=== PATIENT | female | born 1945 | race Caucasian/White ===

== ENCOUNTER → 2019-05-25 | Outpatient (CLI) | payer OTHER | LOC: NUC 10:48 | DX: M85.89 Other specified disorders of bone density and structure, multiple sites (principal); M81.0 Age-related osteoporosis without current pathological fracture ==

== ENCOUNTER 2019-11-02 15:14 | Inpatient (IN) | payer OTHER ==
[~2019-11-02] VITALS: Ht 160 cm; Wt 89.4 kg
[2019-11-02 15:21] VITALS: BP 141/63
[2019-11-02 16:12] LABS: HEMOGLOBIN 6.8 gm/dL (12.0-15.0); MCH 25.5 pg (26.0-34.0); MCHC 32.2 g/dL (28.0-37.0); MCV 79.3 fL (80.0-100.0); PLATELET COUNT 216 thou/uL (150-400); RBC 2.65 mil/uL (4.20-5.00); RDW 18.4 % (10.5-14.5); WBC 6.7 thou/uL (4.0-11.0)
[2019-11-02 16:14] LABS: CALCIUM 8.6 mg/dL (8.5-10.1); CREATININE 1.3 mg/dL (0.6-1.0); POTASSIUM 4.3 mmol/L (3.5-5.1)
[2019-11-02 16:21] LABS: ALBUMIN 3.1 g/dL (3.4-5.0); TOTAL BILIRUBIN 0.2 mg/dL (0.2-1.0); TOTAL PROTEIN 7.1 g/dL (6.4-8.2)
[2019-11-02 16:31] LABS: ABSOLUTE NEUTROPHILS 4.9 thou/uL (1.4-8.2); ANISOCYTOSIS 1+; HYPOCHROMASIA 2+; PLATELET ESTIMATE NORMAL
[2019-11-02 17:21] VITALS: BP 143/61
[2019-11-02] MEDS ORDERED: MELOXICAM15 MG PO (17:36)
[2019-11-02] MEDS ORDERED: SERTRALINE HCL100 MG PO (17:36)
[2019-11-02] MEDS ORDERED: HYDRALAZINE 2525 M1 PO (17:37)
[2019-11-02] MEDS ORDERED: LISINOPRIL40 MG PO (17:37)
[2019-11-02] MEDS ORDERED: FLEXERIL PO (17:37)
[2019-11-02] MEDS ORDERED: ROPINIROLE HCL2 MG PO (17:37)
[2019-11-02] MEDS ORDERED: OMEPRAZOLE40 MG PO (17:38)
[2019-11-02] MEDS ORDERED: MECLIZINE HCL25 M1 PO (17:38)
[2019-11-02] MEDS ORDERED: LIPITOR10 MG PO (17:38)
[2019-11-02] MEDS ORDERED: INDERAL LA120 M1 PO (17:39)
[2019-11-02] MEDS ORDERED: BUPROPION XL300 MG PO (17:39)
[2019-11-02 17:45] VITALS: BP 141/64
[2019-11-02 22:21] VITALS: BP 144/69; BP 147/64; BP 150/79; BP 155/70; BP 159/85
[2019-11-03] VITALS (10 sets, daily range): BP systolic 144–194; BP diastolic 68–99
[2019-11-03 03:20] LABS: HEMATOCRIT 24.2 % (37.0-47.0); HEMOGLOBIN 7.2 gm/dL (12.0-15.0)
[2019-11-03 09:46] LABS: % SATURATION 9 % (20-39); IRON 35 ug/dL (50-170); TIBC 373 ug/dL (250-450)
[2019-11-03 10:53] LABS: HEMOGLOBIN 7.1 gm/dL (12.0-15.0)
[2019-11-03 14:55] LABS: BE(vivo) -3.5 mmol/L (-2 to +3); HCO3 20.1 mmol/L (22.0-26.0); PCO2 30.2 mmHg (35.0-45.0); pH 7.442 (7.360-7.450); sO2 93.8 % (92.0-98.0)
[2019-11-03 23:08] LABS: HEMATOCRIT 27.6 % (37.0-47.0); HEMOGLOBIN 8.6 gm/dL (12.0-15.0)
[2019-11-04 02:30] VITALS: BP 114/49; BP 117/49
[2019-11-04 05:29] LABS: HEMATOCRIT 27.5 % (37.0-47.0); HEMOGLOBIN 8.6 gm/dL (12.0-15.0); MCH 25.4 pg (26.0-34.0); MCHC 31.2 g/dL (28.0-37.0); MCV 81.3 fL (80.0-100.0); RBC 3.38 mil/uL (4.20-5.00); RDW 17.3 % (10.5-14.5); WBC 6.6 thou/uL (4.0-11.0)
[2019-11-04 05:43] LABS: CALCIUM 9.4 mg/dL (8.5-10.1); CREATININE 1.3 mg/dL (0.6-1.0); MAGNESIUM 1.8 mg/dL (1.8-2.4); POTASSIUM 4.1 mmol/L (3.5-5.1)
[2019-11-04 08:35] VITALS: BP 145/81
[2019-11-04 11:45] VITALS: BP 120/94
[2019-11-04 15:35] VITALS: BP 151/80
[2019-11-04 20:00] VITALS: BP 154/87
[2019-11-05 05:00] VITALS: BP 138/60
[2019-11-05 05:56] LABS: HEMATOCRIT 28.4 % (37.0-47.0); HEMOGLOBIN 8.8 gm/dL (12.0-15.0); MCH 25.4 pg (26.0-34.0); MCHC 30.9 g/dL (28.0-37.0); RBC 3.47 mil/uL (4.20-5.00); RDW 17.8 % (10.5-14.5); WBC 6.6 thou/uL (4.0-11.0)
[2019-11-05 06:09] LABS: APTT 33.4 Seconds (24.5-32.8); PROTIME 10.5 Seconds (9.3-11.4)
[2019-11-05 07:48] VITALS: BP 157/76
[2019-11-05 11:20] VITALS: BP 158/74
[2019-11-05 15:27] VITALS: BP 124/42
[2019-11-05 20:53] VITALS: BP 148/78
[2019-11-06 03:23] VITALS: BP 137/65
[2019-11-06 06:06] LABS: HEMATOCRIT 29.5 % (37.0-47.0); HEMOGLOBIN 9.3 gm/dL (12.0-15.0); MCHC 31.5 g/dL (28.0-37.0); MCV 82.7 fL (80.0-100.0); RBC 3.57 mil/uL (4.20-5.00); RDW 17.8 % (10.5-14.5); WBC 7.3 thou/uL (4.0-11.0)
[2019-11-06 06:17] LABS: CALCIUM 9.3 mg/dL (8.5-10.1); CREATININE 1.2 mg/dL (0.6-1.0); MAGNESIUM 1.9 mg/dL (1.8-2.4)
[2019-11-06 08:00] VITALS: BP 108/58
--- NOTE | 2019-11-06 08:36 | EKG ---
[facility] [place] [place] [address] ELECTROCARDIOGRAM REPORT Name: VALERY TYLER Room #: 214-P ADM IN M.R.#: [id number] Admission: 11/02/19 Attend Phys: Virginia Harrell MD Discharge: Date of : 41 Report #: [id number] THIS REPORT FOR: cc: Louis Farris James A. DO Lundgren, Craig H. MD [facility] ~ THIS REPORT FOR: //name// [facility] Test Date: 2019-11-03 Test Time: 14:50:34 Pat Name: VALERY TYLER Department: Room: 214 P Gender: F Isotope Technician: Melanie FERGUSON : 1945 Requested By: Alberto Smith Order Number: [id number] MD: Jovany Iglesias Measurements Intervals Roberts Rate: 74 P: 56 MO: 181 QRS: -42 QRSD: 111 T: 8 QT: 381 QTc: 423 Interpretive Statements Sinus rhythm Leftward axis Poor R wave progression No previous ECG available for comparison Electronically Signed On 11-06-2019 8:26:27 CDT by Jovany Iglesias [email or web address] <ELECTRONICALLY SIGNED> By: Jovany Iglesias MD, [facility] 11/06/19 0826 1450 1450 Jovany Iglesias MD, [facility] /EPI
[2019-11-06 11:20] VITALS: BP 136/70
[2019-11-06 17:00] VITALS: BP 120/62
[2019-11-06 20:06] VITALS: BP 140/74
[2019-11-07 04:45] VITALS: BP 123/69
[2019-11-07 08:00] VITALS: BP 123/66
[2019-11-07 09:39] LABS: BE(vivo) -1.4 mmol/L (-2 to +3); HCO3 22.8 mmol/L (22.0-26.0); PCO2 36.5 mmHg (35.0-45.0); PO2 69.7 mmHg (80.0-100.0); pH 7.414 (7.360-7.450); sO2 94.3 % (92.0-98.0)
[2019-11-07 12:00] VITALS: BP 144/68
--- NOTE | 2019-11-07 16:06 | PATH ---
[facility] [place] [address] [place] [address] PATHOLOGY RPT PROCEDURE Name: VALERY CASTILLO Room #: 214-P ADM IN M.R.#: [id number] Admission: 11/02/19 Date of : 41 Discharge: Report #: [id number] Path Case #: [id number] [facility] Accession Number: [id number] . 01 Material submitted: . PART A: duodenum - BIOPSY OF DUODENUM RULE OUT CELIAC PART B: gastrointestinal site - BIOPSY OF ANTRUM RULE OUT H PYLORI PART C: esophagus - BIOPSY OF DISTAL ESOPHAGUS RULE OUT BARRETTS. Modifiers: distal PART D: hepatic flexure - BIOPSY OF MASS AT HEPATIC FLEXURE . 01 Clinician provided ICD-10: K92.2 J96.01 . 01 Clinical history: . RULE OUT CELIAC RULE OUT H PYLORI Rule out Barretts . 02 Diagnosis: A. Small bowel mucosa, duodenum, endoscopic biopsy: - No significant diagnostic abnormalities present. - Negative for villous blunting or increase in intraepithelial lymphocytes. - One fragment of gastric mucosa showing mild reactive gastropathy without intestinal metaplasia or atrophy. . B. Gastric mucosa, antrum R/O H. pylori, endoscopic biopsy: - Mild reactive gastropathy. - Negative for intestinal metaplasia or atrophy. - Negative for Helicobacter pylori (properly controlled immunohistochemical stain performed). . C. Gastroesophageal mucosa, distal esophagus, endoscopic biopsy: - Squamous mucosa showing mild esophagitis. - Gastric cardia-type mucosa with mild chronic inflammation. - Negative for intestinal metaplasia or dysplasia. . D. Large intestine, mass at hepatic flexure, endoscopic biopsy: - TUBULAR ADENOMA WITH HIGH-GRADE DYSPLASIA; SUSPICIOUS FOR INVASION (PLEASE SEE COMMENT). (IUV:krystal; 11/07/2019) S 11/07/2019 1249 Local . 02 Comment: Dr. Char Gutierrez has seen sales representative slides of this case and [address] [address] PATHOLOGY RPT PROCEDURE Name: PATSYDOCVALERY Room #: 214-P ADM IN [facility].#: [id number] Admission: 11/02/19 Date of : 41 Discharge: Report #: [id number] Path Case #: [id number] concurs with my diagnosis. (IUV:krystal 11/07/2019) . 02 Electronically signed: . Macy Barrera MD, Pathologist NPI- [id number] . 01 Gross description: . A. The specimen is received in formalin, labeled "Augie Castilloa, BX of duodenum" and consists of multiple fragments of pink-avila tissue measuring 1.0 x 0.4 x 0.2 cm in aggregate which are entirely submitted in A1. . B. The specimen is received in formalin, labeled "Augie Castilloa, BX of antrum" and consists of 3 fragments of pink-avila tissue measuring between 0.2 x 0.1 cm and 0.3 x 0.3 cm which are entirely submitted in B1. . C. The specimen is received in formalin, labeled "Augie Castilloa, BX of distal esophagus" and consists of 3 translucent fragments of pink tissue measuring 0.2 x 0.2 cm and 0.4 x 0.2 cm which are entirely submitted in C1. . D. The specimen is received in formalin, labeled "Augie Castilloa, BX of mass at hepatic flexure" and consists of multiple fragments of avila tissue measuring 1.3 x 0.4 x 0.2 cm aggregate which are entirely submitted in D1. (SDY; 11/06/2019) SYU/SYU 11/06/2019 1711 Local . 02 Pathologist provided ICD-10: K31.9, K20.9, D12.3 . 02 CPT . 160313, 130689, 486311, 838395, W68935 Specimen Comment: A courtesy copy of this report has been sent to [phone] Specimen Comment: Report sent to Performed at: [address] [facility] [address], [place], [place] [id number] MD Ziggy Blake MD Phone: [phone] Performed at: [address] [facility] [address] [id number] MD Macy Barrera MD Phone: [phone]
[2019-11-07 17:40] VITALS: BP 122/62
[2019-11-07 20:21] VITALS: BP 149/79
[2019-11-08 04:01] VITALS: BP 142/82
--- NOTE | 2019-11-08 07:24 | HC ---
[facility] [place] [address] CONSULTATION Name: VALERY TYLER Room #: 214-P ADM IN M.R.#: [id number] Admission: 11/02/19 Attend Phys: Virginia Harrell MD Discharge: Date of : 41 Report #: [id number] THIS REPORT FOR: cc: Louis Farris James A. DO McKittrick, Richard James MD ~ CC: Virginia Farris REASON FOR CONSULTATION: Malignant appearing mass on colonoscopy. HISTORY OF PRESENT ILLNESS: The patient is a very pleasant 74-year-old female who grew up in [place], [place] [address] if I recall. 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 She lives with 3 daughters, I think her other children and I think she said [place]. The patient was found on a colonoscopy to have a partially obstructing mass at the hepatic flexure. She also appeared to have some Nunez's esophagus and some gastritis. She came in for shortness of air. At this time, she is awaiting results of pathology and tentative surgery for tomorrow. At this time, she denies fevers, chills, nausea, vomiting, skin rash, bleeding. PAST MEDICAL HISTORY: Notable for hypertension, hyperlipidemia, obesity, dementia, GERD, the recent colonoscopy. PAST SURGICAL HISTORY: Also has a history of bilateral hip surgery, knee surgery and hysterectomy. FAMILY HISTORY: Son had bladder cancer. Sister had an unknown cancer. We will need to make sure and check MSI studies. MEDICATIONS: At this time in the hospital currently include cyclobenzaprine 10 mg at bedtime, meclizine 25 mg t.i.d., ropinirole 2 mg daily, bupropion HCl 300 mg daily, lisinopril 40 mg daily, atorvastatin 10 mg daily, pantoprazole 40 daily, Zoloft 100 mg at bedtime, propranolol 20 b.i.d., hydralazine 25 mg q. 8, Tylenol p.r.n., labetalol p.r.n., hydralazine p.r.n. Iron sucrose begun on 11/02, plan for 5 bags. PHYSICAL EXAMINATION: GENERAL: The patient appears her stated age. VITAL SIGNS: Height is 5 feet 3 inches, 160 cm. Weight is 208 pounds or 94.6 kilograms. Blood pressure is 123/66, O2 sat 96%, respirations 20, pulse 81 and temperature 97.4. NEUROLOGIC: Mood, she is pleasant. Face is symmetrical, moving extremities. [facility] [address] [place] [address] CONSULTATION Name: VALERY TYLER Room #: 214-P ADM IN M.R.#: [id number] Admission: 11/02/19 Attend Phys: Virginia Harrell MD Discharge: Date of : 41 Report #: [id number] Speech and thought pattern appear to be normal. Question of cognitive impairment noted. Full mental status exam not performed. LYMPHATICS: No enlarged lymph nodes in the supraclavicular, cervical, axillary or inguinal region. ABDOMEN: Quite obese. No definite organomegaly, but it would be difficult to tell. EXTREMITIES: Without clubbing or cyanosis. LABORATORY DATA: Lab work is notable for BUN of 8, creatinine of 1.2. Liver functions normal. Albumin 3.1. Iron 35, low percent saturation 9%, TIBC 373. Coags were normal with a slight elevation of a PTT of 33.4. Hemoglobin on admit was 6.8 with an MCV of 79.3, platelets 260, white count 6.7. Differential is normal. I believe the patient says she has not had a colonoscopy before. Ferritin 14. CEA pending. ASSESSMENT AND PLAN: 1. Probable malignancy at hepatic flexure with tentative plans for surgery on Wednesday. Path report pending. CT scan does not appear to show evidence of metastatic disease. Would agree with surgery given partially obstructing mass. 2. Obesity. Calory restriction per others. 3. Hyperlipidemia. Statins. 4. Hypertension. Meds per others. 5. Mood disorder and cognitive issues. Continues multiple meds. We will follow with you. <ELECTRONICALLY SIGNED> By: Juan Mina MD 11/08/19 0724 0923 0943 Juan Mina MD /nt
[2019-11-08 08:46] VITALS: BP 138/80
[2019-11-08 11:25] VITALS: BP 145/62
--- NOTE | 2019-11-08 14:45 | HC ---
[facility] [place] [place] [address] CONSULTATION Name: VALERY TYLER Room #: 214-P ADM IN M.R.#: [id number] Admission: 11/02/19 Attend Phys: Virginia Harrell MD Discharge: Date of : 41 Report #: [id number] THIS REPORT FOR: cc: Louis Farris,Sd Varner MD ~ CC: Virginia Farris DATE OF SERVICE: 11/06/2019 CONSULTING PHYSICIAN: Dr. Kamara. REASON FOR CONSULTATION: Colon mass, partially obstructing. ASSESSMENT: Partially obstructing colon mass, at that hepatic flexure per endoscopy report. RECOMMENDATIONS: 1. Thank you very much for the consultation. I will follow along. 2. Await pathology report on biopsy as well as CT scan and CEA level. The patient will need a partial colectomy due to partial obstruction, would prefer to have the additional workup as above prior to proceeding to the operating room. 2. Okay with liquids, would prefer to keep her on just liquids for bowel prep purposes. 3. Planning for surgery tentatively on Wednesday. HISTORY OF PRESENT ILLNESS: The patient is a very pleasant 74-year-old female who presented to the hospital with weakness, shortness of breath, dizziness and lightheadedness for a few days. She was found to be anemic and GI was consulted. A colonoscopy was performed that demonstrated a mass at the hepatic flexure. This was partially obstructing. It was biopsied and tattooed. The General Surgery team was consulted for further evaluation. PAST MEDICAL HISTORY: 1. Hypertension. 2. Hyperlipidemia. 3. Morbid obesity. 4. Dementia. 5. GERD. PAST SURGICAL HISTORY: 1. Colonoscopy x 1. 2. Tonsillectomy. 3. Hysterectomy. [facility] [address] [place] [address] CONSULTATION Name: VALERY TYLER Room #: 214-P [facility] IN ..#: [id number] Admission: 11/02/19 Attend Phys: Virginia Harrell MD Discharge: Date of : 41 Report #: [id number] 4. Bilateral hip surgery. 5. Right knee surgery. SOCIAL HISTORY: Denies use of alcohol, tobacco or recreational drugs. She lives with her daughter. FAMILY HISTORY: 1. Son had bladder cancer. 2. Sister had an unknown type of cancer. 3. Denies coagulopathy. REVIEW OF SYSTEMS: CONSTITUTIONAL: No fever. No chills. HEENT: Denies blurring of vision, double vision, headaches, hearing loss, sinus drainage or sore throat. Denies blurring of vision, double vision, headaches, hearing loss, sinus drainage or sore throat. CARDIOVASCULAR: Denies chest pain, palpitations, orthopnea or paroxysmal nocturnal dyspnea. RESPIRATORY: Denies cough, wheezing, hemoptysis, or shortness of air. GASTROINTESTINAL: See above and below. GENITOURINARY: Denies dysuria or hematuria or kidney stones. No urinary frequency, urgency or incontinence. Denies dysuria or hematuria or kidney stones. No urinary frequency, urgency or incontinence. MUSCULOSKELETAL: No joint pain. No muscle pain. NEUROLOGICAL: Denies tremor, stroke or seizure. Denies tremor, stroke or seizure. HEMATOLOGIC: See above and below. SKIN: No rash or ulceration. ENDOCRINE: No heat or cold intolerance PSYCHIATRIC: Denies depression, anxiety, or schizophrenia. PHYSICAL EXAMINATION: VITAL SIGNS: Temperature 36.5, pulse 66, respiratory rate 16, blood pressure 136/70, pulse ox 93% on room air. GENERAL: No apparent distress, alert and oriented x3. HEENT: PERRLA, EOMI, MMM, NCAT NECK: Supple. No LAD CARDIOVASCULAR: Regular rhythm and rate. Hemodynamically stable. Normal capillary refill. Regular rhythm and rate. Hemodynamically stable. Normal capillary refill. PULMONARY: Nonlabored. Clear to auscultation bilaterally ABDOMEN: Soft, morbidly obese, nontender. No guarding, rebound, or rigidity. EXTREMITIES: Calves soft, nontender, no edema. SKIN: No rashes or bruises. PSYCHIATRIC: Normal mood and affect Normal mood and affect NEUROLOGICAL: Grossly intact. CN II-XII grossly intact. [address] [address] CONSULTATION Name: VALERY TYLER Room #: 214-P [facility] IN M.R.#: [id number] Admission: 11/02/19 Attend Phys: Virginia Harrell MD Discharge: Date of : 41 Report #: [id number] MUSCULOSKELETAL: 5/5 strength in upper extremities and lower extremities bilaterally LYMPHATICS: No cervical, inguinal, or supraclavicular lymphadenopathy. LABORATORY DATA: White blood count 7.3, hemoglobin 9.3, platelets 276. Sodium 140, potassium 4, creatinine 1.2. INR 1. IMAGING: CT of the chest, abdomen and pelvis pending. CEA level is pending. <ELECTRONICALLY SIGNED> By: Sd Kamara MD 11/08/19 1445 1518 1608 Sd Kamara MD /nt
[2019-11-08 14:58] VITALS: BP 136/87
[2019-11-08 19:40] VITALS: BP 139/89
[2019-11-09] VITALS: BP 157/90
[2019-11-09 03:50] VITALS: BP 147/73
[2019-11-09 05:40] LABS: HEMATOCRIT 29.9 % (37.0-47.0); HEMOGLOBIN 9.1 gm/dL (12.0-15.0); MCHC 30.4 g/dL (28.0-37.0); MCV 85.7 fL (80.0-100.0); RBC 3.49 mil/uL (4.20-5.00); RDW 18.8 % (10.5-14.5); WBC 8.8 thou/uL (4.0-11.0)
[2019-11-09 05:55] LABS: CALCIUM 8.1 mg/dL (8.5-10.1); PHOSPHORUS 4.6 mg/dL (2.5-4.9); POTASSIUM 5.1 mmol/L (3.5-5.1)
[2019-11-09 08:35] VITALS: BP 146/91
[2019-11-09 12:30] VITALS: BP 141/75
[2019-11-09 15:30] VITALS: BP 152/80
[2019-11-09 20:17] VITALS: BP 151/73
[2019-11-10 03:50] VITALS: BP 180/81
[2019-11-10 08:44] VITALS: BP 149/72
[2019-11-10 10:57] LABS: HEMATOCRIT 30.6 % (37.0-47.0); HEMOGLOBIN 9.6 gm/dL (12.0-15.0); MCH 26.7 pg (26.0-34.0); MCHC 31.3 g/dL (28.0-37.0); MCV 85.3 fL (80.0-100.0); RBC 3.59 mil/uL (4.20-5.00); RDW 19.5 % (10.5-14.5); WBC 8.5 thou/uL (4.0-11.0)
[2019-11-10 11:07] LABS: CALCIUM 9.1 mg/dL (8.5-10.1); CREATININE 1.2 mg/dL (0.6-1.0); PHOSPHORUS 2.5 mg/dL (2.5-4.9); POTASSIUM 4.1 mmol/L (3.5-5.1)
[2019-11-10 18:00] VITALS: BP 141/67
[2019-11-10 20:00] VITALS: BP 156/53
[2019-11-11 04:00] VITALS: BP 131/59
[2019-11-11 05:41] LABS: HEMATOCRIT 30.4 % (37.0-47.0); HEMOGLOBIN 9.2 gm/dL (12.0-15.0); MCH 26.1 pg (26.0-34.0); MCHC 30.3 g/dL (28.0-37.0); MCV 86.2 fL (80.0-100.0); RBC 3.53 mil/uL (4.20-5.00); RDW 20.3 % (10.5-14.5); WBC 7.2 thou/uL (4.0-11.0)
[2019-11-11 06:13] LABS: ALBUMIN 2.8 g/dL (3.4-5.0); CALCIUM 9.1 mg/dL (8.5-10.1); CREATININE 1.3 mg/dL (0.6-1.0); POTASSIUM 4.2 mmol/L (3.5-5.1)
[2019-11-11 08:15] VITALS: BP 131/57
[2019-11-11 11:26] VITALS: BP 117/57
[2019-11-11 20:00] VITALS: BP 134/64
[2019-11-12 04:00] VITALS: BP 109/44
[2019-11-12 08:45] VITALS: BP 138/90
[2019-11-12 16:37] VITALS: BP 154/86
[2019-11-12 19:50] VITALS: BP 147/68
[2019-11-13 05:58] VITALS: BP 120/63
[2019-11-13 07:30] VITALS: BP 140/70
[2019-11-13] MEDS ORDERED: COLACE 100 MG100 MG PO (08:43)
[2019-11-13] MEDS ORDERED: ACETAMINOPHEN325 M1 PO (08:43)
[2019-11-13] MEDS ORDERED: MIRALAX17 GM PO (08:43)
[2019-11-13] MEDS ORDERED: TRAMADOL 50 MG50 MG PO (08:43)
[2019-11-13 08:57] LABS: HEMATOCRIT 28.7 % (37.0-47.0); HEMOGLOBIN 8.9 gm/dL (12.0-15.0); MCH 26.8 pg (26.0-34.0); MCV 86.2 fL (80.0-100.0); RBC 3.33 mil/uL (4.20-5.00); RDW 21.8 % (10.5-14.5); WBC 5.6 thou/uL (4.0-11.0)
[2019-11-13 09:13] LABS: ALBUMIN 2.7 g/dL (3.4-5.0); CALCIUM 8.5 mg/dL (8.5-10.1); CREATININE 1.4 mg/dL (0.6-1.0); PHOSPHORUS 3.5 mg/dL (2.5-4.9); POTASSIUM 4.7 mmol/L (3.5-5.1)
[2019-11-13 09:36] VITALS: BP 140/70
[2019-11-13] MEDS ORDERED: ASA81BEC PO (11:07)
[2019-11-13 11:37] VITALS: BP 140/70
--- NOTE | 2019-11-14 12:06 | PATH ---
[facility] [place] [address] PATHOLOGY RPT PROCEDURE Name: VALERY CASTILLO Room #: 214-P DIS IN M.R.#: [id number] Admission: 11/02/19 Date of : 41 Discharge: 11/13/19 Report #: [id number] Path Case #: [id number] [facility] Accession Number: [id number] . 01 Material submitted: . colon - RIGHT COLON. Modifiers: right . 01 Clinician provided ICD-10: K92.2 J96.01 . 01 Clinical history: . GASTROINTESTINAL HEMORRHAGE,UNSPECFIED ACUTE RESPIRATORY FAILEU WITH HYPOXIA . 02 Diagnosis: Large intestine, right colon, right hemicolectomy: - INVASIVE MODERATELY DIFFERENTIATED COLONIC ADENOCARCINOMA INVADING THROUGH MUSCULARIS PROPRIA INTO PERICOLORECTAL SOFT TISSUE. - Margins of resection free of malignancy; closest distal mucosal margin is 4.0 cm away. - ONE LYMPH NODE SHOWING METASTATIC CARCINOMA OF A TOTAL OF 20 (1/20). - Appendix and terminal ileum showing no evidence of malignancy. - Four additional tubular adenomas identified; negative for high grade dysplasia. (IUV/db; 11/10/2019) . . Surgical Pathology Cancer Case Summary . Protocol posting date: April 2019 . COLON AND RECTUM: Resection, Including Transanal Disk Excision of Rectal Neoplasms . Procedure ___ Right hemicolectomy . Tumor Site ___ Right (ascending) colon . Tumor Size Greatest dimension (centimeters): 2.8 cm . Macroscopic Tumor Perforation ___ Not identified . Histologic Type [facility] [address] [place] [address] PATHOLOGY RPT PROCEDURE Name: VALERY CASTILLO Room #: 214-P [facility] IN M.R.#: [id number] Admission: 11/02/19 Date of : 41 Discharge: 11/13/19 Report #: [id number] Path Case #: [id number] ___ Adenocarcinoma . Histologic Grade ___ G2: Moderately differentiated . Tumor Extension ___ Tumor invades through the muscularis propria into pericolorectal tissue . Margins ___ All margins are uninvolved by invasive carcinoma, high-grade dysplasia, intramucosal adenocarcinoma, and adenoma Margins examined: Distance of invasive carcinoma from closest margin: 4.0 cm Specify closest margin: Distal margin . Treatment Effect ___ No known presurgical therapy . Lymphovascular Invasion ___ Not identified . Perineural Invasion ___ Not identified . Tumor Deposits ___ Not identified . Regional Lymph Nodes . Number of Lymph Nodes Involved: 1 . Number of Lymph Nodes Examined: 20 . Pathologic Stage Classification (pTNM, AJCC 8th Edition) Note: Reporting of pT, pN, and (when applicable) pM categories is based on information available to the pathologist at the time the report is issued. . Primary Tumor (pT) ___ pT3: Tumor invades through the muscularis propria into pericolorectal tissues Regional Lymph Nodes (pN) ___ pN1a: One regional lymph node is positive Distant Metastasis (pM) (required only if confirmed pathologically in this case) ___ pMx: Not known LBQ 11/13/2019 [address] [address] PATHOLOGY RPT PROCEDURE Name: VALERY CASTILLO Room #: 214-P DIS IN M.R.#: [id number] Admission: 11/02/19 Date of : 41 Discharge: 11/13/19 Report #: [id number] Path Case #: [id number] . 02 Comment: Field Map Technician slide (A7) was seen by Dr. Char Gutierrez who concurs with my diagnosis. MSI (four immunohistochemical stains) are ordered on block A7 due to the findings per [facility] Cancer, Committee Protocol. The results of these will be reported in an addendum to follow. (IUV/db; 11/10/2019) . 02 Addendum: . MICROSATELLITE INSTABILITY REPORT (MSI): . Per [facility] Cancer Committee Protocol, mismatch repair (MMR) protein immunohistochemical staining was performed. . Reason for testing: To evaluate for evidence of defective mismatch repair proteins. Method: Immunohistochemical staining for the presence or absence of protein expression of one or more of the following MMR protein markers: MLH1, MSH2, MSH6 and PMS2. Tumor type: Invasive adenocarcinoma . Results: MLH1 - Preserved MSH2 - Preserved MSH6 - Preserved PMS2 - Preserved . Mismatch Repair Status:MMR Proficient (MMR-P) . Interpretation: . (MMR-P) All four MMR proteins are preserved within tumor cells. This suggests the presence of normal DNA mismatch repair function within the tumor and an observable defect in mismatch repair is not identified. The likelihood that this patient has an inherited germline mutation syndrome due to defective mismatch repair is reduced but not totally eliminated. If the patient has a strong personal or family history of HPNCC/Barnett syndrome related cancers (colorectal, endometrial, gastric, ovarian, pancreatic, ureter/renal pelvis, biliary tract, brain, small bowel and Ashely-Young syndrome), consider MSI testing by PCR methodology. Suggest clinical correlation and follow up. . These test results are designed for screening purposes only and are useful tools in identifying cancer patients that are more likely to have Barnett Syndrome related diagnoses. Tests should be interpreted in the context of clinical findings, family history and laboratory data. Abnormal IHC results for MMR protein expression are not considered diagnostic for Barnett Syndrome. [address] [address] PATHOLOGY RPT PROCEDURE Name: VALERY CASTILLO Room #: 214-P DIS IN M.R.#: [id number] Admission: 11/02/19 Date of : 41 Discharge: 11/13/19 Report #: [id number] Path Case #: [id number] . Professional services performed by [facility] at [facility], [address] [address]. Technical services performed by [facility] at [address] [place] [address], [address], [place] [address]. IZV/11/13/2019 Addendum Electronically Signed by Macy Barrera MD, Pathologist . 02 Electronically signed: . Macy Barrera MD, Pathologist NPI- [id number] . 01 Gross description: . The specimen is received in formalin, labeled "Valery Castillo, right colon" and consists of a previously opened right hemicolectomy specimen with terminal ileum stump (2.8 cm in length and 2.8 cm in diameter), ascending colon (17.5 cm in length and up to 6.0 cm in diameter), appendix (4.5 cm in length and up to 1.1 cm in diameter) and pericolic fat up to 8.8 cm. Both margins have a staple line. The serosa is pink-avila with hemorrhagic adhesions and extensive black tattoo ink near the distal margin. Corresponding to this black tattoo ink is a constricting circumferential pink avila mass with rolled borders measuring 2.8 x 2.6 cm that is 4.0 cm to distal, 10.0 cm to proximal, and 4.1 cm to mesenteric margin. Proximal the mass are 4 additional possible polyps that are 0.8 cm up to 9.0 cm proximal to mass. Sectioning the mass reveals obliteration of the muscular wall with focal gross invasion of the mesocolic tissue. The appendix reveals a dilated lumen. The mesocolic fat reveals numerous lymph node candidates. Field Map Technician sections are submitted as follows: . A1: Proximal margin A2: Distal margin A3: Mass with mesocolic invasion A4: Additional mass A5: Mass to distal tattoo A6: Mass to proximal A7: Additional mass A8: Additional polyps A9: Appendix A10: Bisected lymph node cluster A11: 1 trisected lymph node A12: 2 bisected lymph nodes, one inked black A13: 2 bisected lymph nodes, one inked black A14: 1 trisected lymph node A15: 2 bisected lymph nodes A16: 6 intact lymph node candidates (SDY; 11/09/2019) SYU/SYU 11/09/2019 1648 Local . 02 [facility] [email or web address] [address] PATHOLOGY RPT PROCEDURE Name: VALERY CASTILLO Room #: 214-P DIS IN M.R.#: [id number] Admission: 11/02/19 Date of : 41 Discharge: 11/13/19 Report #: [id number] Path Case #: [id number] Pathologist provided ICD-10: C18.9, D12.6 . 02 CPT . 232045, E74743, S32061 Specimen Comment: A courtesy copy of this report has been sent to [phone] Specimen Comment: 1664, Specimen Comment: Report sent to ,DR RENDON / DR WALLACE Performed at: 01 [facility] [place] [id number] [facility] [address], [place], [place] [id number] MD Ziggy Blake MD Phone: [phone] Performed at: 02 [facility] [place] [id number] MD Macy Barrera MD Phone: [phone]
== END 2019-11-13 12:52 | disposition home or self-care (01) | DRG 329 ==
LOC: ER 15:14 → 2N 16:55 → EROBS 16:55 → 2N 17:55
PROVIDERS: Internal Medicine; Nurse Practitioner; Physician Assistant; Surgery; ADMIT Hospitalist; ATTEND Hospitalist
PROC: 0DTF0ZZ Resection of Right Large Intestine, Open Approach (ICD-10-PCS; principal; 2019-11-02)
PROC: 0DJD8ZZ Inspection of Lower Intestinal Tract, Via Natural or Artificial Opening Endoscopic (ICD-10-PCS; principal; 2019-11-02)
PROC: 0DD98ZX Extraction of Duodenum, Via Natural or Artificial Opening Endoscopic, Diagnostic (ICD-10-PCS; principal; 2019-11-02)
DX: C18.3 Malignant neoplasm of hepatic flexure (principal); J96.01 Acute respiratory failure with hypoxia; K92.2 Gastrointestinal hemorrhage, unspecified; D62 Acute posthemorrhagic anemia; N17.9 Acute kidney failure, unspecified; E44.1 Mild protein-calorie malnutrition; E78.5 Hyperlipidemia, unspecified; F39 Unspecified mood [affective] disorder; I10 Essential (primary) hypertension; F03.90 Unspecified dementia, unspecified severity, without behavioral disturbance, psychotic disturbance, mood disturbance, and anxiety; G47.33 Obstructive sleep apnea (adult) (pediatric); E66.01 Morbid (severe) obesity due to excess calories; F41.1 Generalized anxiety disorder; K21.9 Gastro-esophageal reflux disease without esophagitis; Z79.899 Other long term (current) drug therapy; Z68.34 Body mass index [BMI] 34.0-34.9, adult; G89.29 Other chronic pain; Z96.659 Presence of unspecified artificial knee joint; K22.70 Barrett's esophagus without dysplasia; K44.9 Diaphragmatic hernia without obstruction or gangrene; K76.89 Other specified diseases of liver; K64.8 Other hemorrhoids; Z20.828 Contact with and (suspected) exposure to other viral communicable diseases
CPT/HCPCS: 10081; 50010; 50093; 50101; 50386; 50455; 50525; 50555; 51489; 51708; 51712; 52265; 53307; 53310; 54118; 56525; 56526; 56529; 57092; 58115; 62110; 62900; 70005